=== PATIENT | male | born 1960 ===

== ENCOUNTER 2016-10-18 12:32 | Emergency (ER) | payer BC ==
[~2016-10-18] VITALS: Ht 165.1 cm; Wt 70.3 kg
[2016-10-18] MEDS ORDERED: [UNRECOGNIZED DRUG - REMARK] (12:40)
[2016-10-18] MEDS ORDERED: [UNRECOGNIZED DRUG - REMARK] (12:40)
--- NOTE | 2016-10-18 12:49 | NUR ---
Pt states he is unable to provide urine specimen at this time.
[2016-10-18] MEDS: KETOROLAC TROMETHAMINE 15 MG INJ IVP ONE (13:08)
[2016-10-18] MEDS: ONDANSETRON 4 MG/2 ML VIAL IV PRN (13:10)
[2016-10-18] MEDS: MORPHINE SULFATE 2 MG/1 ML DISP.SYRIN IV PRN (13:12)
[2016-10-18] MEDS ORDERED: MORPHINE SULFATE 4 MG/1 ML DISP.SYRIN ONE (13:20)
[2016-10-18] MEDS ORDERED: ONDANSETRON 4 MG/2 ML VIAL ONE (13:20)
[2016-10-18] MEDS ORDERED: KETOROLAC TROMETHAMINE 15 MG INJ ONE (13:20)
[2016-10-18] MEDS: HYDROMORPHONE 1 MG/1 ML DISP.SYRIN IV ONE (13:44)
[2016-10-18] MEDS ORDERED: HYDROMORPHONE 1 MG/1 ML DISP.SYRIN ONE (13:54)
--- NOTE | 2016-10-18 14:16 | NUR ---
Pt resting in gurney with eyes closed, easily aroused with verbal stimuli. Pt states he feels much better and his pain is now 2/10.
[2016-10-18 15:07] LABS: *BILIRUBIN,URIN NEGATIVE (NEGATIVE); *BLOOD, URINE 2+ (NEGATIVE); *CLARITY,URINE CLEAR (CLEAR); *COLOR,URINE YELLOW (YELLOW); *KETONES,URINE 1+ (NEGATIVE); *PROTEIN,URINE 1+ (NEGATIVE); *UROBILINOGEN,URINE 0.2 E.U./dl (NORMAL); LEUKOCYTE ESTERASE ,URINE NEGATIVE (NEGATIVE); NITRITE, URINE NEGATIVE (NEGATIVE); PH,URINE 5.5 (5.0-8.0); UGLUCOSE NEGATIVE (NEGATIVE)
[2016-10-18 15:15] LABS: BACTERIA,URINE FEW /HPF (NONE SEEN); RBC,URINE 20-50 /HPF (0-3); SQUAMOUS EPITHELIAL CELL,UR FEW /HPF (NONE SEEN)
--- NOTE | 2016-10-18 15:35 | NUR ---
Pt resting with NAD noted, labs still pending.
--- NOTE | 2016-10-18 15:42 | NUR ---
Spoke with Cordelia in lab regarding lab results, per Cordelia they never received the order. Dr. Martinez notified.
--- NOTE | 2016-10-18 15:52 | NUR ---
IV removed. Catheter intact and site benign. Pressure and 4x4 gauze applied to site. No bleeding noted.
--- NOTE | 2016-10-18 15:54 | NUR ---
Patient discharged to home in stable conditon with family. Written and verbal after care instructions given. Patient verbalizes understanding of instructions. Stressed follow up with pmd.
== END 2016-10-18 16:04 | disposition home or self-care (01) ==
LOC: ER 12:32
DX: N20.0 Calculus of kidney (principal); I10 Essential (primary) hypertension; E78.5 Hyperlipidemia, unspecified; Z87.442 Personal history of urinary calculi
CPT/HCPCS: A4663; J1170; J1885; J2270; J2405